=== PATIENT | female | born 1985 | race Caucasian/White ===

== ENCOUNTER 2017-11-12 20:03 | Emergency (ER) | payer MEDICAID ==
[2015-09-17 13:45] VITALS: Wt 132.9 kg
[~2017-11-12 20:03] MED LIST: ACE3 PO; AMO500 PO; AMOX875T60 PO; BENZ100C4 PO; CEP500 PO; CODE118S5 PO; DOC100 PO; FERR-103 PO; FERR-53 PO; IBU600 PO; IBU800 PO; IBUP800T37 PO; LOR5 PO; MULT-1047 PO; NO ROUTINE MEDS; ONDA4TAB PO; OXYC-865 PO; OXYM15MI14 NS; PER PO; PNV1CAPS PO
[2017-11-12 20:07] VITALS: BP 116/90
--- NOTE | 2017-11-12 20:12 | ER Report ---
History and Physical Time Seen By MD: 20:12 Hx. of Stated Complaint: PT REPORTS INCREASED DENTAL PAIN OVER THE PAST FEW DAYS. PT REPORT BOTTOM LEFT TOOTH WITH CAVITY. HPI/ROS CHIEF COMPLAINT: Tooth pain HISTORY OF PRESENT ILLNESS: 32-year-old female patient presents to emergency room with complaint of tooth pain. Patient states she's been having problems with her tooth for the last 2 days. Patient states that she has known that she' s had a cavity in that tooth for quite some time. She states she is not able to get and see her dentist. Patient states that the pain has gotten worse over the last couple days. States when she ate something that she has significant amounts of pain. She denies having any fevers, however she has felt chilled. Patient states she did take some ibuprofen which seemed to help. She has not taken any other medication for this. Allergies: Coded Allergies: No Known Drug Allergies (Verified , 11/12/17) Home Meds Active Scripts Hydrocodone Bit/Acetaminophen (HYDROCODON-ACETAMINOPHEN 5-325) 1 Each Tablet, 1 EACH PO Q4-6H Y for PAIN, #8 TAB Prov:JAY BISHOP 11/12/17 Amoxicillin 500 Mg Tab (AMOXICILLIN 500 MG TAB) 500 Mg Tablet, 1 TAB PO Q8H, # 19 TAB Prov:JAY BISHOP 11/12/17 Discontinued Reported Medications Ferrous Sulfate (IRON SUPPLEMENT) 325 Mg Tablet, 325 MG PO 09/16/15 Pnv #35/Iron/Fa #6/Dha (PRENATE ESSENTIAL SOFTGEL) 1 Each Capsule, 1 EACH PO, CAPSULE 09/16/15 Discontinued Scripts Ibuprofen (IBUPROFEN) 800 Mg Tablet, 800 MG PO Q8H for 28 Days, TAB 1 Refill Prov:ALBINA PORRAS MD 09/19/15 Ferrous Sulfate (FERROUS SULFATE) 325 Mg Tablet, 325 MG PO BIDBS for 30 Days, TAB Prov:ALBINA PORRAS MD 09/19/15 Past Medical/Surgical History Patient has a past medical history of liver disease. Patient has a past surgical history of cholecystectomy. Reviewed Nurses Notes: Yes Hx Smoking: No Smoking Status: Never Smoker Exposure to Second Hand Smoke?: No Hx Substance Use Disorder: No Hx Alcohol Use: No Constitutional Vital Sign - Last 24 Hours 11/12/17 20:07 Temp 97.8 Pulse 79 Resp 12 B/P (MAP) 116/90 Pulse Ox 95 O2 Delivery Room Air Physical Exam General appearance: Alert no distress. Respiratory: Chest is non tender, lungs are clear to auscultation. Cardiac: Regular rate and rhythm. ENT: Tympanic membranes are pearly-martinez, auditory canals are patent, mucus mucous membranes are moist. Patient does have significant amount of decay to tooth #21. Gums around the tooth do seem erythematous. DIFFERENTIAL DIAGNOSIS: After history and physical exam differential diagnosis was considered for toothache, dental infection. Medical Decision Making ED Course/Re-evaluation ED Course Patient was admitted and examined, history and physical obtained. Differential diagnoses were considered. On examination patient does have a tooth that has a significant carry. Patient does have erythema around it, there is no obvious abscess noted. I discussed with the patient about doing a dental block. She refused at this time. We will go ahead and give her a dose of amoxicillin here in the emergency room, they give her a dose for tomorrow morning as well as a nondisplaced pain medication she is to follow-up with her dentist this week. She is to call on Tuesday to make an appointment. Patient verbalized understanding and agreement with plan. Decision to Disposition Date: November 12, 2017 Decision to Disposition Time: 20:20 Depart Departure Latest Vital Signs Vital Signs Date Time Temp Pulse Resp B/P (MAP) Pulse Ox O2 Delivery O2 Flow Rate FiO2 11/12/17 20:07 97.8 79 12 116/90 95 Room Air Impression: Primary Impression: Pain, dental Condition: Improved Disposition: HOME OR SELF-CARE New Scripts Hydrocodone Bit/Acetaminophen (HYDROCODON-ACETAMINOPHEN 5-325) 1 Each Tablet 1 EACH PO Q4-6H Y for PAIN, #8 TAB Prov: JAY BISHOP DECORATING INSPECTOR 11/12/17 Amoxicillin 500 Mg Tab (AMOXICILLIN 500 MG TAB) 500 Mg Tablet 1 TAB PO Q8H, #19 TAB Prov: JAY BISHOPP 11/12/17 Patient Instructions: Toothache (ED) Additional Instructions: You may take Ibuoprofen in addition to the pain medication as needed for pain. Rinse mouth with warm salt water after every meal. Eat soft foods. Follow up with your dentist as soon as possible, call to make an appointment. Return to the ER if condition worsens. Use a temporary filling to help protect the nerve and the remainder the tooth, vacuum be purchased at any of the pharmacies.. JAY BISHOP November 12, 2017 20:12
[2017-11-12] MEDS ORDERED: AMOX500T10 PO (20:18)
[2017-11-12] MEDS ORDERED: HYDR-385 PO (20:18)
[2017-11-12] MEDS ORDERED: AMOXICILLIN 500 MG CAP PO ONE (20:20)
[2017-11-12] MEDS ORDERED: ACET/HYDROC 5/325MG TH ER ONLY 2 TAB/BOTTLE PO ONE (20:20)
== END 2017-11-12 20:30 | disposition home or self-care (01) ==
LOC: ER 20:14
DX: K08.89 Other specified disorders of teeth and supporting structures (principal)
CPT/HCPCS: 99282